=== PATIENT | male | born 1945 | race Caucasian/White ===

== ENCOUNTER 2017-09-05 09:11 | Emergency (ER) | payer OTHER ==
[~2017-09-05] VITALS: Ht 188 cm; Wt 115.8 kg
[~2017-09-05 09:11] MED LIST: AMIODARONE PO; ASPIRIN81 M1; IBUPROFEN800 MG PO; LISINOPRIL5 MG PO; METOPROLOL; METOPROLOL SUCC50 MG PO; NAPROXEN500 M2 PO; PRADAXA150 MG PO; PROSCAR5 MG PO; TERAZOSIN HCL5 MG PO; VYTORIN 10/21 TABLET
[2017-09-05 09:36] LABS: APPEARANCE CLEAR ((CLEAR)); BILIRUBIN NEGATIVE; BLOOD NEGATIVE; COLOR YELLOW ((YELLOW)); GLUCOSE (STRIP) NEGATIVE; KETONES NEGATIVE; LEUKOCYTES TRACE; NITRITE NEGATIVE; PROTEIN (STRIP) NEGATIVE; SPECIFIC GRAVITY 1.008 (1.000-1.030); UROBILINOGEN 0.2 MG/DL (0.2-1.0)
[2017-09-05 09:40] LABS: BACTERIA NONE SEEN /HPF; EPITHELIAL CELLS NONE SEEN /HPF; MUCUS NONE SEEN /LPF; RED BLOOD CELLS 0-5 /HPF (0-5)
[2017-09-05] MEDS ORDERED: FLOMAX0.4 MG PO (10:05)
[2017-09-05 10:20] VITALS: BP 135/75
== END 2017-09-05 10:21 | disposition home or self-care (01) ==
LOC: EME 09:11
DX: R30.0 Dysuria (principal); N40.0 Benign prostatic hyperplasia without lower urinary tract symptoms
CPT/HCPCS: 81003; 99281; 99283